=== PATIENT | male | born 2000 | race African-American/Black ===

== ENCOUNTER 2022-04-06 08:21 | Emergency (ER) | payer MEDICAID ==
[~2022-04-06] VITALS: Ht 172.7 cm; Wt 80.0 kg
[2022-04-06 08:32] VITALS: BP 125/80
[2022-04-06] MEDS ORDERED: IPRATROPIUM BROMIDE (0.02%) 0.5MG/2.5ML NEB HHN STA (08:42)
[2022-04-06] MEDS ORDERED: ALBUTEROL (0.083%) 2.5MG/3ML NEB HHN STA (08:42)
[2022-04-06] MEDS ORDERED: ALBU6.7H3 INH (09:26)
== END 2022-04-06 09:38 | disposition home or self-care (01) ==
LOC: ER 08:29
DX: J45.909 Unspecified asthma, uncomplicated (principal)
CPT/HCPCS: 94640; 99283; Z7610